=== PATIENT | male | born 1970 | race Caucasian/White ===

== ENCOUNTER 2017-12-13 19:34 | Inpatient (IN) | payer SELFPAY ==
[~2017-12-13] VITALS: Ht 175.3 cm; Wt 95.5 kg
[2017-12-13 20:38] VITALS: BP 176/83; PULSE 88; RESP 18; TEMP 98.1; O2SAT 99
[2017-12-13] MEDS ORDERED: IBUPROFEN 600 MG TAB PO ONE (20:45)
[2017-12-13] MEDS ORDERED: oxyCODONE/ACETAMINOPHEN 5 MG/325 MG TAB PO ONE (20:45)
[2017-12-13] MEDS ORDERED: TRAM50TA PO (20:54)
[2017-12-13] MEDS ORDERED: IBUP-232 PO (20:54)
--- NOTE | 2017-12-13 20:54 | PD ---
HPI Chief Complaint: Pain: Acute or Chronic Time Seen by Provider: 20:38 Travel History International Travel<30 days: No Contact w/Intl Traveler<30days: No Traveled to known affect area: No History of Present Illness HPI 47-year-old male arrives with pain in the right ankle. 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 He never followed up with the physician and the pain gradually subsided somewhat. Today the patient was walking very long distance and felt sudden onset severe pain. In the ER he describes continuous pain in the region of the ankle. It's worse with range of motion and with palpation. PFSH Past Medical History Immunizations Current: No Tetanus Vaccination: Unknown Influenza Vaccination: No Past Surgical History Surgical History: No Previous Surgery Social History Alcohol Use: No (QUIT) Tobacco Use: Yes (09/11 PPD) Substance Use: No Allergies-Medications (Allergen,Severity, Reaction): Coded Allergies: No Known Allergies (Unverified , 12/13/17) Reported Meds & Prescriptions Reported Meds & Active Scripts Active Tramadol (Tramadol HCl) 50 Mg Tab 100 Mg PO Q6H PRN Ibuprofen 600 Mg Tab 600 Mg PO Q8HR PRN Review of Systems General / Constitutional: No: Fever Eyes: No: Diploplia, Blurred Vision HENT: No: Vertigo, Rhinitis Physical Exam Narrative GENERAL: 47-year-old male pleasant well-nourished well-developed mild distress Vital Signs Date Time Temp Pulse Resp B/P (MAP) Pulse Ox O2 Delivery O2 Flow Rate FiO2 12/13/17 20:41 18 12/13/17 20:38 98.1 88 18 176/83 (114) 99 SKIN: Warm and dry. HEAD: Atraumatic. Normocephalic. EYES: Pupils equal and round. No scleral icterus. No injection or drainage. ENT: No nasal bleeding or discharge. Mucous membranes pink and moist. NECK: Trachea midline. No JVD. CARDIOVASCULAR: Regular rate and rhythm. RESPIRATORY: No accessory muscle use. Clear to auscultation. Breath sounds equal bilaterally. GASTROINTESTINAL: Abdomen soft, non-tender, nondistended. Hepatic and splenic margins not palpable. MUSCULOSKELETAL: There is tenderness about the ankle mortise on the right. There is tenderness about the medial and lateral malleolus on the right. No gross deformity. 2+ dorsalis pedis L foot. No palpable DP on R. + Popliteal pulse on the R side. NEUROLOGICAL: Awake and alert. No obvious cranial nerve deficits. Motor grossly within normal limits. Five out of 5 muscle strength in the arms and legs. Normal speech. Data Data Last Documented VS Vital Signs Date Time Temp Pulse Resp B/P (MAP) Pulse Ox O2 Delivery O2 Flow Rate FiO2 12/13/17 22:04 97 12/13/17 20:41 18 12/13/17 20:38 98.1 88 176/83 (114) Orders Orders Ankle, Complete ([id number]) (12/13/17 20:43) Ice/Cold Pack (12/13/17 20:43) Splint Or Brace Apply/Monitor (12/13/17 20:43) Crutches (12/13/17 20:43) Oxycodone-Acetamin 5-325 Mg (Percocet (12/13/17 20:45) Ibuprofen (Motrin) (12/13/17 20:45) Basic Metabolic Panel (Bmp) (12/13/17 21:36) Complete Blood Count With Diff (12/13/17 21:36) Prothrombin Time / Inr (Pt) (12/13/17 21:36) Act Partial Throm Time (Ptt) (12/13/17 21:36) Iv Access Insert/Monitor (12/13/17 21:36) Oximetry (12/13/17 21:36) Oxygen Administration (12/13/17 21:36) Sodium Chloride 0.9% Flush (Ns Flush) (12/13/17 21:45) Hydromorphone Pf Inj (Dilaudid Pf Inj) (12/13/17 21:45) Heparin Inj (Heparin Inj) (12/13/17 22:15) Heparin Inj (Heparin Inj) (12/14/17 04:15) Heparin Inj (Heparin Inj) (12/14/17 04:15) Heparin-D5w 25,000 U/250 Ml (Heparin-D5w (12/13/17 22:15) Cbc No Diff, Includes Plts (12/16/17 06:00) Act Partial Throm Time (Ptt) (12/14/17 05:07) Occult Blood (Hemoccult) Stool (12/13/17 22:07) Cta Runoff W Iv Contrast W 3d (12/13/17 22:09) Consult Vascular Surgery (12/13/17 ) Electrocardiogram (12/13/17 ) (Hub Use Only)Inp Phy Cons/Ref (12/13/17 ) Shoe Cast (12/13/17 ) Labs Laboratory Tests Test 12/13/17 21:50 White Blood Count 16.1 TH/MM3 Red Blood Count 4.88 MIL/MM3 Hemoglobin 14.0 GM/DL Hematocrit 42.6 % Mean Corpuscular Volume 87.3 FL Mean Corpuscular Hemoglobin 28.6 PG Mean Corpuscular Hemoglobin Concent 32.8 % Red Cell Distribution Width 15.4 % Platelet Count 260 TH/MM3 Mean Platelet Volume 8.6 FL Neutrophils (%) (Auto) 78.6 % Lymphocytes (%) (Auto) 13.1 % Monocytes (%) (Auto) 5.5 % Eosinophils (%) (Auto) 0.3 % Basophils (%) (Auto) 2.5 % Neutrophils # (Auto) 12.7 TH/MM3 Lymphocytes # (Auto) 2.1 TH/MM3 Monocytes # (Auto) 0.9 TH/MM3 Eosinophils # (Auto) 0.0 TH/MM3 Basophils # (Auto) 0.4 TH/MM3 CBC Comment DIFF FINAL Differential Comment Prothrombin Time 10.6 SEC Prothromb Time International Ratio 1.0 RATIO Activated Partial Thromboplast Time 24.0 SEC Blood Urea Nitrogen 20 MG/DL Creatinine 1.10 MG/DL Random Glucose 110 MG/DL Calcium Level 9.1 MG/DL Sodium Level 139 MEQ/L Potassium Level 3.9 MEQ/L Chloride Level 106 MEQ/L Carbon Dioxide Level 25.4 MEQ/L Anion Gap 8 MEQ/L Estimat Glomerular Filtration Rate 71 ML/MIN [facility] Medical Decision Making Medical Screen Exam Complete: Yes Emergency Medical Condition: Yes Medical Record Reviewed: Yes Differential Diagnosis Fracture, dislocation, contusion Narrative Course CBC & BMP Diagram 12/13/17 21:50 Calcium Level 9.1 Case discussed with vascular surgeon. Request is made for stat transfer, ER to ER. Case was discussed with the charge nurse in the ER and Dr. Camilo. We will notify Dr. Iniguez as soon as the patient arrives. EMS activated at 11:40 PM. Heparin started. Excellent pain control achieved with 1 mg hydromorphone. Patient is aware of the plan and agreeable with it. Diagnosis Primary Impression: Arterial occlusion Referrals: Dawit Cee DPM Med/Other Pt SpecificInfo: Prescription(s) given Scripts Tramadol (Tramadol) 50 Mg Tab 100 MG PO Q6H Y for PAIN SCALE 6 TO 10, #20 TAB 0 Refills Prov: Jak Romero MD 12/13/17 Ibuprofen (Ibuprofen) 600 Mg Tab 600 MG PO Q8HR Y for PAIN, #20 TAB 0 Refills Prov: Jak Romero MD 12/13/17 Jak Romero MD Dec 13, 2017 20:54
--- NOTE | 2017-12-13 21:42 | RADRPT ---
EXAM DATE/TIME: 12/13/2017 20:51 [facility] COMPARISON: No previous studies available for comparison. INDICATIONS : Fell two months ago. Tonight while walking his ankle gave out on him. Pain anterior surface. MEDICAL HISTORY : None. SURGICAL HISTORY : None. ENCOUNTER: Initial ACUITY: 2 months PAIN SCORE: 8/10 LOCATION: Right Ankle FINDINGS: Three view exam was performed of the right ankle. The bony structures are in normal alignment. No e vidence of fracture, dislocation, or soft tissue swelling. The ankle mortise is intact. No radiopaq ue foreign bodies are seen. Bony mineralization is normal. CONCLUSION: 1. No acute findings. Diomedes Blackmon MD on December 13, 2017 at 21:38 Board Certified Radiologist. This report was verified electronically.
[2017-12-13] MEDS ORDERED: SODIUM CHLORIDE 0.9% FLUSH 10 ML FLUSH IVF PRN (21:45)
[2017-12-13] MEDS ORDERED: HYDROmorphone HCL PF 2 MG/ML VIAL IV PUSH ONE (21:45)
[2017-12-13 22:04] VITALS: O2SAT 97
[2017-12-13 22:06] LABS: BICARBONATE 25.4 MEQ/L (21.0-32.0); CALCIUM 9.1 MG/DL (8.5-10.1)
[2017-12-13 22:08] LABS: PROTHROMBIN TIME - PATIENT 10.6 SEC (9.8-11.6)
[2017-12-13 22:09] LABS: CREATININE 1.1 MG/DL (0.60-1.30)
[2017-12-13 22:10] LABS: AUTOMATED NEUTROPHIL # 12.7 TH/MM3 (1.8-7.7); BASOPHIL # 0.4 TH/MM3 (0-0.2); BASOPHIL % 2.5 % (0.0-2.0); EOSINOPHIL % 0.3 % (0.0-4.0); HEMATOCRIT 42.6 % (39.0-51.0); LYMPH % 13.1 % (9.0-44.0); LYMPHOCYTE # 2.1 TH/MM3 (1.0-4.8); MEAN CELL VOLUME 87.3 FL (80.0-100.0); MEAN CORPUSCULAR HEMOGLOBIN 28.6 PG (27.0-34.0); MEAN CORPUSCULAR HGB CONC 32.8 % (32.0-36.0); MEAN PLATELET VOLUME 8.6 FL (7.0-11.0); MONO % 5.5 % (0.0-8.0); MONOCYTE # 0.9 TH/MM3 (0-0.9); NEUT % 78.6 % (16.0-70.0); PLATELET COUNT 260 TH/MM3 (150-450); RED BLOOD COUNT 4.88 MIL/MM3 (4.50-5.90); RED CELL DISTRIBUTION WIDTH 15.4 % (11.6-17.2); WHITE BLOOD COUNT 16.1 TH/MM3 (4.0-11.0)
[2017-12-13] MEDS ORDERED: HEPARIN-D5W 25,000 U/250 ML 250 ML IV PRN (22:15)
[2017-12-13] MEDS ORDERED: HEPARIN SODIUM - IV 10,000 UNITS/10 ML VIAL IV PUSH ONE (22:15)
[2017-12-13] MEDS ORDERED: IOHEXOL 350 MG/ML 10 ML VIAL (for RAD DIAG) IVCONTRAST ONE ×2 (22:17→23:03)
[2017-12-13 23:19] VITALS: BP 166/84
[2017-12-13 23:45] VITALS: BP 153/81; PULSE 54; RESP 12; O2SAT 97
[2017-12-14] MEDS ORDERED: SODIUM CHLORIDE 0.9% FLUSH 10 ML FLUSH IV FLUSH PRN (00:30)
[2017-12-14] MEDS ORDERED: Post-op Orders (for Pharmacy) XX ONE (00:30)
[2017-12-14] MEDS ORDERED: ONDANSETRON HCL 4 MG/2 ML VIAL IV PUSH PRN (00:30)
[2017-12-14] MEDS ORDERED: oxyCODONE/ACETAMINOPHEN 10 MG/325 MG TAB PO PRN (00:30)
[2017-12-14] MEDS ORDERED: NALOXONE HCL 0.4 MG/ML AMP IV PUSH PRN (00:30)
[2017-12-14] MEDS ORDERED: MORPHINE SULFATE 4 MG/ML INJ IV PRN (00:45)
[2017-12-14] MEDS ORDERED: SODIUM CHLOR 0.9% 250 ML INJ 250 ML IV ONE (01:00)
[2017-12-14] MEDS ORDERED: MIDAZOLAM HCL 2 MG/2 ML VIAL ONE (01:03)
[2017-12-14] MEDS ORDERED: ACETAMINOPHEN 1000 MG/100 ML 100 ML IV ONE (01:03)
[2017-12-14] MEDS ORDERED: FAMOTIDINE 20 MG/2 ML VIAL ONE (01:04)
[2017-12-14] MEDS ORDERED: HEPARIN SODIUM - SQ 10,000 UNITS/ML VIAL ONE ×2 (01:17→03:00)
[2017-12-14 01:30] VITALS: BP 175/91
--- NOTE | 2017-12-14 01:39 | RADRPT ---
EXAM DATE/TIME: 12/14/2017 00:56 [facility] COMPARISON: No previous studies available for comparison. INDICATIONS : Preoperative chest X-Ray. Blood clots in leg. MEDICAL HISTORY : None. SURGICAL HISTORY : None. ENCOUNTER: Initial ACUITY: 1 day PAIN SCORE: 0/10 LOCATION: Bilateral chest FINDINGS: Single AP view of the chest. The lungs are clear. Cardiomediastinal silhouette within normal limits. No evidence of pleural effusion or pneumothorax. CONCLUSION: No acute cardiopulmonary disease identified. Ty Boykin MD on December 14, 2017 at 1:36 Board Certified Radiologist. This report was verified electronically.
[2017-12-14] MEDS ORDERED: ceFAZolin INJ 1,000 MG VIAL ONE (03:00)
[2017-12-14] MEDS: SODIUM CHLOR 0.9% 1000 ML INJ 1,000 ML IV SCH ×3 (03:38→22:09)
[2017-12-14] MEDS ORDERED: HEPARIN SODIUM - IV 10,000 UNITS/10 ML VIAL IV PUSH PRN ×2 (04:15)
[2017-12-14] MEDS ORDERED: DO NOT ADM ANY ANTICOAGULANT DRUGS PRN (04:15)
--- NOTE | 2017-12-14 04:20 | MP ---
cc: Robert Krause MD DATE OF OPERATION: 12/14/2017 DATE OF SURGERY: 12/14/2017. PREOPERATIVE DIAGNOSIS: Ischemia of the right leg; occlusion of the right common iliac, common femoral, SFA, popliteal, and posterior tibial arteries. POSTOPERATIVE DIAGNOSIS: Ischemia of the right leg; occlusion of the right common iliac, common femoral, SFA, popliteal, and posterior tibial arteries. PROCEDURE: Aortoiliac thromboembolectomy, right common femoral embolectomy, right SFA and posterior tibial thromboembolectomy, repair of the common femoral artery. [employer] MECHANICAL ENGINEER: Dr. Krause. ANESTHESIA: General. ESTIMATED BLOOD LOSS: 100 mL. TECHNIQUE: The patient was prepped and draped in the usual fashion. Right groin incision was made and common femoral, deep femoral, and superficial femoral arteries isolated by sharp dissection. A vessel loop was placed around each vessel. The patient was given 5000 units of heparin. The vessel is now opened transversely with 11 blade and Trammell scissors. There is a huge clot sitting in the common femoral artery which nearly completely obstructs the vessel. A #4 James embolectomy catheter is first passed distally, and this results in the retrieval of huge amount of thromboembolic material. The thromboembolic material more proximally in the common femoral artery and the proximal superficial femoral artery appears to be fresh. The one from the distal end appears to be at least 3-4 days old. The James is now passed about 3-4 times down the vessel and it reaches all the way to the ankle, probably if he had a posterior tibial artery. This evacuates old embolic material and then the vessel is flushed with heparinized saline and a profunda clamp placed on it lightly. Proximal end is now attended, and a #5 James is now passed proximally all the way into the aorta and then withdrawn. There is a huge amount of thromboembolic material that is obtained. In addition, there are several segments of the material that appear to be grayish-white in color, which could be either pieces of myxoma coming from the heart or vegetations coming from the heart, or possibly from one of the other vessels. It could also theoretically be tumor material from somewhere, but it is hard to tell. It appears to be umana-whitish, just like myxoma would. The #5 James catheter is now passed a few more times up, and each time, a fair amount of thromboembolic material is obtained until finally there is none left. This is followed by brisk bleeding from inflow down. A Satinsky clamp is applied. Once more a #4 is passed down the leg, and no more embolic material is obtained. Now the vessel is closed with running 6-0 Prolene and then blood flow reestablished in the usual order and fashion. The patient's foot readily pinks up and there is a strong dopplerable posterior tibial and anterior tibial pulse. The area irrigated with saline and closed in layers with 2-0 Vicryl and 4-0 subcuticular Monocryl. The patient tolerated the procedure well. It should be noted that the source of these thromboemboli should be determined. Unfortunately, only in about 30% of patients we are able to determine the original source and mechanism. 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 MD MARY Penny/LAUREEN , 03:46 AM , 04:19 AM
[2017-12-14 04:46] VITALS: BP 156/87; PULSE 63; RESP 18; TEMP 98.1; O2SAT 99
--- NOTE | 2017-12-14 06:35 | MH ---
cc: Robert Krause MD DATE OF ADMISSION: 12/14/2017 ADMITTING PHYSICIAN: Dr. Krause, Vascular Surgery REASON FOR ADMISSION: Ischemia of the right leg. HISTORY OF PRESENT ILLNESS: This 47-year-old male was apparently walking today, when he started experiencing pain in his right leg. Pain was mainly below the knee into the foot, which is very severe, now it is a little less. The patient presented to the ER at [place]. It should be noted that he had an ankle injury on 07/2015, but has been okay since. The patient states that the pain is now throbbing. I was called by ER physician, Dr. Jak Romero, around 10:00 last night that the patient had a cold foot and wanted immediate transfer to [facility]. The patient arrives at [facility] just around midnight and he has been examined. PAST MEDICAL HISTORY: That of right ankle injury 2 months ago. Also, medical history is that of drug abuse, mainly cocaine and weed. PAST SURGICAL HISTORY: Negative. MEDICATIONS: The patient does not take any. SOCIAL HISTORY: Smokes about 1-1/2 pack a day of cigarettes and he smokes weed, says he quit drinking and using cocaine. PHYSICAL EXAMINATION: GENERAL: Reveals a 47-year-old male. HEENT: Normocephalic. No trauma to the head. Pupils equally reactive. Extraocular muscles intact. NECK: Supple. Bilateral carotid pulses. No bruits. CHEST: Bilateral breath sounds. HEART: Regular rhythm. Sinus bradycardia, about 50 beats per minute. No arrhythmias. ABDOMEN: Soft, active bowel sounds. EXTREMITIES: The patient has palpable left femoral pulse. Palpable left popliteal pulse. Palpable dorsalis pedis and posterior tibial on the left. On the right, the patient has no palpable or dopplerable femoral pulse and then a weak Dopplerable popliteal pulse and very slow and sluggish posterior tibial pulse. Dorsalis pedis is absent. Capillary refill is decreased. Forefoot appears to be slightly cyanotic and it is clearly cooler than the left side. This is consistent with likely at least external iliac stenosis or occlusion and then probably scattered occlusion throughout the SFA, popliteal and distal tree. IMAGING: As I am dictating, the CT scan results are not available yet, but this is what I think is happening. I will discuss with Dr. Rahul Dietz. PLAN: The patient will be admitted to my service. We will have TPA lysis and we will go from there. MD MARY Penny/HANY , 12:30 AM , 12:50 AM [facility]AVIN
[2017-12-14 07:28] VITALS: BP 116/69; PULSE 60; RESP 18; TEMP 97.7; O2SAT 98
--- NOTE | 2017-12-14 08:17 | RADRPT ---
EXAM DATE/TIME: 12/13/2017 22:17 [facility] COMPARISON: No previous studies available for comparison. INDICATIONS : Evalaute for occlusion. No pulse in right foot. IV CONTRAST: 100 cc Omnipaque 350 (iohexol) IV RADIATION DOSE: 12.78 CTDIvol (mGy) MEDICAL HISTORY : Skin cancer. SURGICAL HISTORY : None. ENCOUNTER: Initial ACUITY: 1 day PAIN SCALE: 9/10 LOCATION: Right foot. TECHNIQUE: Volumetric scanning was performed using a multi-row detector CT scanner. The data was post processed with a variety of visualization algorithms including full volume maximum intensity projection, multi -planar sliding thin slab reformation, curved planar reformation, and surface rendering techniques. Using automated exposure control and adjustment of the mA and/or kV according to patient size, radiat ion dose was kept as low as reasonably achievable to obtain optimal diagnostic quality images. DICO M format image data is available electronically for review and comparison. FINDINGS: Aorta/inflow: Scattered calcified and noncalcified atheromatous plaque involving the infrarenal aorta. This generat es an irregular luminal contour but no significant stenosis of the abdominal aorta. Thrombus is seen occluding the right common iliac artery extending through the majority of the external iliac artery. There is reconstitution of the common femoral artery via the inferior epigastric artery. There is a 5 0-60% stenosis of the left common iliac artery origin secondary to noncalcified atheromatous plaque. The external aortic artery is patent. Right internal iliac artery fills in a retrograde fashion via t he contralateral side. The left internal iliac artery is patent. There is a very high grade stenosis involving the SMA. This is greater than 90% resulting in a string sign for the proximal 1.5 cm of arlene t vessel. The celiac and LINNETTE are patent. There is variant anatomy at the celiac origin with the left gastric and right hepatic arteries sharing a common trunk arises directly off the aorta. Both renal a rteries are patent and single in nature. Right lower extremity: The common femoral artery, profunda femoris, and SFA are widely patent. There is acute occlusion seco ndary to embolus involving the [id number] popliteal artery. This occludes at the level of the fem oral condyles. Small geniculate collaterals are observed that reconstitute a very diminutive posterio r tibial artery. The peroneal artery is patent proximally but occludes distally. Anterior tibial zia ry is occluded throughout. Left lower extremity: The outflow and runoff are widely patent. 3 vessels to the foot. Other structures: There is an area cortical scarring involving the upper pole of the right kidney. Tiny cortical renal cysts on the left. Degenerative disc disease at L5-S1. CONCLUSION: 1. Calcified and noncalcified atheromatous plaques degenerating and irregular contour to the infraren al aorta without significant stenosis. There is acute occlusion of the right common iliac artery and 50-60% stenosis of the left common iliac artery. 2. Right lower extremity shows embolus occluding the popliteal artery beginning at the [id number] level and extending through the proximal trifurcation vessels. There is reconstitution of the small caliber posterior tibial artery which crosses the foot. Anterior tibial and peroneal are occluded. 3. Patent outflow and runoff involving the left foot. Fito Loving Jr., MD on December 14, 2017 at 8:01 Board Certified Radiologist. This report was verified electronically.
[2017-12-14] MEDS: PANTOPRAZOLE SOD 40 MG DELAYED RELEASE TAB PO SCH (09:09)
[2017-12-14] MEDS: CLOPIDOGREL 75 MG TAB PO SCH (09:09)
[2017-12-14] MEDS: SODIUM CHLORIDE 0.9% FLUSH 10 ML FLUSH IV FLUSH SCH ×2 (09:10→22:09)
[2017-12-14] MEDS: oxyCODONE/ACETAMINOPHEN 5 MG/325 MG TAB PO PRN ×2 (09:13→16:12)
[2017-12-14 11:28] VITALS: BP 107/51; PULSE 55; RESP 18; TEMP 97.9; O2SAT 97
[2017-12-14] MEDS ORDERED: ONDANSETRON HCL 4 MG/2 ML VIAL IV ONE (12:00)
[2017-12-14] MEDS ORDERED: SUCCINYLCHOLINE CHLORIDE 200 MG/10 ML VIAL IV ONE (12:00)
[2017-12-14] MEDS ORDERED: LIDOCAINE HCL 1% PF 5 ML SYRINGE OTHER ONE (12:00)
[2017-12-14] MEDS ORDERED: PROPOFOL 200 MG/20 ML AMP IV ONE (12:00)
[2017-12-14 16:00] VITALS: BP 95/53; PULSE 51; RESP 18; TEMP 97.7; O2SAT 97
--- NOTE | 2017-12-14 16:11 | EKG ---
Date Performed: 12/14/2017 Time Performed: 00:18:22 PTAGE: 47 years EKG: SINUS BRADYCARDIA BORDERLINE ECG NO PREVIOUS TRACING DOCTOR: Brayan Foster Interpretating Date/Time 12/14/2017 16:10:35
--- NOTE | 2017-12-14 16:16 | EKG ---
Date Performed: 12/13/2017 Time Performed: 22:38:49 PTAGE: 47 years EKG: SINUS BRADYCARDIA BORDERLINE ECG NO PREVIOUS TRACING DOCTOR: Brayan Foster Interpretating Date/Time 12/14/2017 16:14:42
--- NOTE | 2017-12-14 16:54 | ECHRPT ---
Indication: Embolism, Vegetation CONCLUSIONS The left ventricular systolic function is low normal with an estimated ejection fraction in the rang e of 50- 55%. Wall thickness is measured at the upper limits of normal. Normal left ventricular size. Mild thickening of the mitral valve leaflets. Trace mitral valve regurgitation. Mild thickening of the aortic valve leaflets. There is mild tricuspid valve regurgitation. The estimated pulmonary arterial pressure is 37.9 mmHg. Trivial pulmonary valve regurgitation. BP: / HR: 49 Rhythm: Sinus MEASUREMENTS (Male / Female) Normal Values Technical Quality:Fair 2D ECHO LV Diastolic Diameter PLAX 4.5 cm 4.2 - 5.9 / 3.9 - 5.3 cm LV Systolic Diameter PLAX 3.4 cm IVS Diastolic Thickness 1.0 cm 0.6 - 1.0 / 0.6 - 0.9 cm LVPW Diastolic Thickness 1.0 cm 0.6 - 1.0 / 0.6 - 0.9 cm LV Relative Wall Thickness 0.5 RV Internal Dim ED PLAX 2.9 cm LVOT Diameter 2.4 cm LA Systolic Diameter LX 3.8 cm 3.0 - 4.0 / 2.7 - 3.8 cm M-MODE Aortic Root Diameter MM 2.7 cm LA Systolic Diameter MM 3.4 cm LA Ao Ratio MM 1.3 AV Cusp Separation MM 1.9 cm DOPPLER AV Peak Velocity 159.0 cm/s AV Peak Gradient 10.1 mmHg LVOT Peak Velocity 139.0 cm/s LVOT Peak Gradient 7.7 mmHg AV Area Cont Eq pk 4.0 cm MV Area PHT 3.9 cm Mitral E Point Velocity 91.6 cm/s Mitral A Point Velocity 35.8 cm/s Mitral E to A Ratio 2.6 TR Peak Velocity 264.0 cm/s TR Peak Gradient 27.9 mmHg Right Atrial Pressure 10.0 mmHg Pulmonary Artery Systolic Pressu 37.9 mmHg Right Ventricular Systolic Press 37.9 mmHg FINDINGS LEFT VENTRICLE The left ventricular systolic function is low normal with an estimated ejection fraction in the rang e of 50- 55%. Wall thickness is measured at the upper limits of normal. Normal left ventricular size. RIGHT VENTRICLE Normal right ventricular size and systolic function. LEFT ATRIUM The left atrial size is normal. RIGHT ATRIUM The right atrial size is normal. ATRIAL SEPTUM Normal atrial septal thickness without atrial level shunting by limited color doppler interrogation. AORTA The aortic root and proximal ascending aorta are normal in size on limited imaging. MITRAL VALVE Mild thickening of the mitral valve leaflets. Trace mitral valve regurgitation. AORTIC VALVE Trileaflet aortic valve. Mild thickening of the aortic valve leaflets. TRICUSPID VALVE Structurally normal tricuspid valve. There is mild tricuspid valve regurgitation. The estimated pulmonary arterial pressure is 37.9 mmHg. PULMONARY VALVE Trivial pulmonary valve regurgitation. VESSELS The inferior vena cava is normal in size. PERICARDIUM No pericardial effusion. Rojas Doyle MD, FACC (Electronically Signed) Final Date:14 December 2017 16:54
[2017-12-14 20:00] VITALS: BP 110/57; PULSE 65; RESP 18; TEMP 98.7; O2SAT 97
[2017-12-15] VITALS: BP 122/63; PULSE 54; RESP 16; TEMP 98.6; O2SAT 96
[2017-12-15] MEDS: oxyCODONE/ACETAMINOPHEN 5 MG/325 MG TAB PO PRN (03:37)
[2017-12-15] MEDS: SODIUM CHLOR 0.9% 1000 ML INJ 1,000 ML IV SCH (07:00)
[2017-12-15 08:00] VITALS: BP 113/59; PULSE 57; RESP 16; RESP 49; TEMP 98.4; O2SAT 95
[2017-12-15 08:01] LABS: AUTOMATED NEUTROPHIL # 6.5 TH/MM3 (1.8-7.7); BASOPHIL % 0.2 % (0.0-2.0); EOSINOPHIL # 0.1 TH/MM3 (0-0.4); EOSINOPHIL % 1.5 % (0.0-4.0); HEMATOCRIT 36.2 % (39.0-51.0); HEMOGLOBIN 11.9 GM/DL (13.0-17.0); LYMPH % 24.2 % (9.0-44.0); LYMPHOCYTE # 2.4 TH/MM3 (1.0-4.8); MEAN CELL VOLUME 88.8 FL (80.0-100.0); MEAN CORPUSCULAR HEMOGLOBIN 29.1 PG (27.0-34.0); MEAN CORPUSCULAR HGB CONC 32.8 % (32.0-36.0); MEAN PLATELET VOLUME 8.4 FL (7.0-11.0); MONO % 7.1 % (0.0-8.0); MONOCYTE # 0.7 TH/MM3 (0-0.9); PLATELET COUNT 197 TH/MM3 (150-450); RED BLOOD COUNT 4.07 MIL/MM3 (4.50-5.90); WHITE BLOOD COUNT 9.7 TH/MM3 (4.0-11.0)
[2017-12-15 08:45] LABS: BICARBONATE 27.5 MEQ/L (21.0-32.0); CALCIUM 8.3 MG/DL (8.5-10.1); CREATININE 0.8 MG/DL (0.60-1.30)
[2017-12-15] MEDS: SODIUM CHLORIDE 0.9% FLUSH 10 ML FLUSH IV FLUSH SCH ×2 (09:00→22:06)
[2017-12-15] MEDS: CLOPIDOGREL 75 MG TAB PO SCH (09:20)
[2017-12-15] MEDS: PANTOPRAZOLE SOD 40 MG DELAYED RELEASE TAB PO SCH (09:20)
[2017-12-15] MEDS ORDERED: INFLUENZA VIRUS VACCINE (QUADRIVALENT) 0.5 ML SYR IM ONE (10:00)
[2017-12-15 12:00] VITALS: BP 126/84; PULSE 64; RESP 16; TEMP 98; O2SAT 97
--- NOTE | 2017-12-15 15:08 | PD.CAR.PN ---
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 Status post iliofemoral and SFA thromboembolectomy. Excellent distal flow with strong dopplerable dorsalis pedis posterior tibial pulses bilaterally Both feet are warm Patient is on Plavix Incision clean and dry Patient ambulating with ease Cardiac echo does not reveal any significant abnormalities that would account for patient's iliac thrombosis At this point we will discharge the patient in the morning and he will follow- up with interventional radiology on an outpatient basis for angiogram with possible dilatation of the iliac arteries if there is a stenotic area there Objective: Vital Signs Date Time Temp Pulse Resp B/P (MAP) Pulse Ox O2 Delivery O2 Flow Rate FiO2 12/15/17 12:00 98.0 64 16 126/84 (98) 97 12/15/17 08:00 98.4 57 16 113/59 (77) 95 12/15/17 00:00 98.6 54 16 122/63 (82) 96 12/14/17 20:00 98.7 65 18 110/57 (74) 97 12/14/17 16:00 97.7 51 18 95/53 (67) 97 Labs: Laboratory Tests Test 12/15/17 07:17 White Blood Count 9.7 TH/MM3 (4.0-11.0) Red Blood Count 4.07 MIL/MM3 (4.50-5.90) Hemoglobin 11.9 GM/DL (13.0-17.0) Hematocrit 36.2 % (39.0-51.0) Mean Corpuscular Volume 88.8 FL (80.0-100.0) Mean Corpuscular Hemoglobin 29.1 PG (27.0-34.0) Mean Corpuscular Hemoglobin Concent 32.8 % (32.0-36.0) Red Cell Distribution Width 16.0 % (11.6-17.2) Platelet Count 197 TH/MM3 (150-450) Mean Platelet Volume 8.4 FL (7.0-11.0) Neutrophils (%) (Auto) 67.0 % (16.0-70.0) Lymphocytes (%) (Auto) 24.2 % (9.0-44.0) Monocytes (%) (Auto) 7.1 % (0.0-8.0) Eosinophils (%) (Auto) 1.5 % (0.0-4.0) Basophils (%) (Auto) 0.2 % (0.0-2.0) Neutrophils # (Auto) 6.5 TH/MM3 (1.8-7.7) Lymphocytes # (Auto) 2.4 TH/MM3 (1.0-4.8) Monocytes # (Auto) 0.7 TH/MM3 (0-0.9) Eosinophils # (Auto) 0.1 TH/MM3 (0-0.4) Basophils # (Auto) 0.0 TH/MM3 (0-0.2) CBC Comment DIFF FINAL Differential Comment Blood Urea Nitrogen 10 MG/DL (7-18) Creatinine 0.80 MG/DL (0.60-1.30) Random Glucose 83 MG/DL (74-106) Calcium Level 8.3 MG/DL (8.5-10.1) Sodium Level 141 MEQ/L (136-145) Potassium Level 3.9 MEQ/L (3.5-5.1) Chloride Level 108 MEQ/L (98-107) Carbon Dioxide Level 27.5 MEQ/L (21.0-32.0) Anion Gap 6 MEQ/L (5-15) Estimat Glomerular Filtration Rate 103 ML/MIN (>89) Result Diagram: 12/15/17 0717 12/15/17 0717 Robert Krause MD Dec 15, 2017 15:08
[2017-12-15 16:00] VITALS: BP 140/63; PULSE 57; RESP 16; TEMP 99; O2SAT 98
[2017-12-15 20:00] VITALS: BP 163/60; PULSE 63; RESP 21; TEMP 98.7; O2SAT 96
[2017-12-16] VITALS: BP 121/61; PULSE 52; RESP 18; TEMP 98.5; O2SAT 95
[2017-12-16] MEDS: oxyCODONE/ACETAMINOPHEN 5 MG/325 MG TAB PO PRN ×2 (00:57→13:02)
[2017-12-16 04:00] VITALS: BP 111/65; PULSE 57; RESP 19; TEMP 98.4; O2SAT 96
[2017-12-16 08:00] VITALS: BP 122/70; PULSE 53; RESP 20; TEMP 97.9; O2SAT 96
[2017-12-16] MEDS: PANTOPRAZOLE SOD 40 MG DELAYED RELEASE TAB PO SCH (08:57)
[2017-12-16] MEDS: CLOPIDOGREL 75 MG TAB PO SCH (08:57)
[2017-12-16] MEDS: SODIUM CHLORIDE 0.9% FLUSH 10 ML FLUSH IV FLUSH SCH (08:58)
--- NOTE | 2017-12-16 11:11 | PD.CAR.PN ---
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 Status post iliofemoral and SFA thromboembolectomy. Excellent distal flow with strong dopplerable dorsalis pedis posterior tibial pulses bilaterally Both feet are warm Patient is on Plavix Incision clean and dry Patient ambulating with ease Cardiac echo does not reveal any significant abnormalities that would account for patient's iliac thrombosis At this point we will discharge the patient in the morning and he will follow- up with interventional radiology on an outpatient basis for angiogram with possible dilatation of the iliac arteries if there is a stenotic area there 12/16/2017 Incision clean and dry with good distal pulses in both legs Palpable femoral pulses bilateral Patient can be discharged at this time and will follow up with me and interventional radiology for outpatient angiogram and possible stenting Objective: Vital Signs Date Time Temp Pulse Resp B/P (MAP) Pulse Ox O2 Delivery O2 Flow Rate FiO2 12/16/17 08:00 97.9 53 20 122/70 (87) 96 12/16/17 04:00 98.4 57 19 111/65 (80) 96 12/16/17 00:00 98.5 52 18 121/61 (81) 95 12/15/17 20:00 98.7 63 21 163/60 (94) 96 12/15/17 16:00 99.0 57 16 140/63 (88) 98 12/15/17 12:00 98.0 64 16 126/84 (98) 97 Result Diagram: 12/15/17 0717 12/15/17 0717 Robert Krause MD Dec 16, 2017 11:11
[2017-12-16] MEDS ORDERED: OXYC1TAB63 PO (11:15)
[2017-12-16] MEDS ORDERED: PLAV75TA29 PO (11:15)
[2017-12-16 12:00] VITALS: BP 149/69; PULSE 59; RESP 20; TEMP 98.4; O2SAT 96
== END 2017-12-16 15:05 | disposition home or self-care (01) | DRG 253 ==
LOC: PHEFT 19:34 → NEDA 12-14 00:32 → N06B 12-14 04:39
PROVIDERS: ADMIT Surgery; ATTEND Surgery
PROC: 04CR0ZZ Extirpation of Matter from Right Posterior Tibial Artery, Open Approach (ICD-10-PCS; 2017-12-14)
PROC: 04CK0ZZ Extirpation of Matter from Right Femoral Artery, Open Approach (ICD-10-PCS; principal; 2017-12-14 01:50)
DX: I74.3 Embolism and thrombosis of arteries of the lower extremities (principal); I74.5 Embolism and thrombosis of iliac artery; R00.1 Bradycardia, unspecified; D15.1 Benign neoplasm of heart; F14.10 Cocaine abuse, uncomplicated; F12.10 Cannabis abuse, uncomplicated; F17.210 Nicotine dependence, cigarettes, uncomplicated
CPT/HCPCS: 71045; 73610; 75635; 80048; 85025; 85610; 85730; 86850; 86900; 86901; 86920; 88304; 90686; 93005; 93306; 94150; 99285; E0113; J0131; J0330; J0690; J1170; J1644; J2250; J2405; J3010; J7030; L3260; Q2038; Q9967

== ENCOUNTER 2018-02-17 08:36 | Emergency (ER) | payer SELFPAY ==
[~2018-02-17] VITALS: Ht 175.3 cm; Wt 90.0 kg
[~2018-02-17 08:36] MED LIST: OXYC1TAB63 PO; PLAV75TA29 PO
[2018-02-17 08:40] VITALS: BP 142/75; PULSE 85; RESP 18; TEMP 98.3; O2SAT 100
--- NOTE | 2018-02-17 09:16 | PD ---
HPI Chief Complaint: Pain: Acute or Chronic Time Seen by Provider: 09:02 Travel History International Travel<30 days: No Contact w/Intl Traveler<30days: No Traveled to known affect area: No History of Present Illness HPI Patient comes in stating that he has had surgery by vascular surgeon Dr. Abdullahi, back in December when he had some apparent blockage on his right arterial flow of his right lower extremity. Patient states that he was feeling better after that , until last night when he started feeling right foot and leg pain. The pain was described as sharp crampy, 8 out of 10 WORSE WITH LONG WALKS...., patient denies having any pale-looking foot or cold. No known drug allergy Past medical history significant for peripheral vascular disease, history of skin cancer, patient continues to smoke 1-1/2 pack per day cigarettes PFSH Past Medical History Hx Anticoagulant Therapy: Yes Cancer: Yes (SKIN CANCER) Cardiovascular Problems: No Endocrine: No Genitourinary: No Musculoskeletal: No Neurologic: No Psychiatric: No Reproductive: No Respiratory: No Immunizations Current: No Past Surgical History Other Surgery: Yes Social History Alcohol Use: No (QUIT) Tobacco Use: Yes (09/11 PPD) Substance Use: No Allergies-Medications (Allergen,Severity, Reaction): Coded Allergies: No Known Allergies (Unverified , 12/13/17) Reported Meds & Prescriptions Reported Meds & Active Scripts Active No Active Prescriptions or Reported Medications Review of Systems General / Constitutional: No: Fever Eyes: No: Visual changes HENT: No: Headaches Cardiovascular: No: Chest Pain or Discomfort Respiratory: No: Shortness of Breath Gastrointestinal: No: Abdominal Pain Genitourinary: No: Dysuria Musculoskeletal: Positive: Pain Skin: No Rash Neurologic: No: Weakness Psychiatric: No: Depression Endocrine: No: Polydipsia Hematologic/Lymphatic: No: Easy Bruising Physical Exam Narrative GENERAL: SKIN: Warm and dry. HEAD: Atraumatic. Normocephalic. EYES: Pupils equal and round. No scleral icterus. No injection or drainage. ENT: No nasal bleeding or discharge. Mucous membranes pink and moist. NECK: Trachea midline. No JVD. CARDIOVASCULAR: Regular rate and rhythm. Left pedal pulses palpablE but decreased to a 1+, right pedal pulse was not palpable but dopplerable monophasic flow found, foot is not exhibiting pallor, warm to touch, RESPIRATORY: No accessory muscle use. Clear to auscultation. Breath sounds equal bilaterally. GASTROINTESTINAL: Abdomen soft, non-tender, nondistended. MUSCULOSKELETAL: Extremities without clubbing, cyanosis, or edema. No obvious deformities. NEUROLOGICAL: Awake and alert. No obvious cranial nerve deficits. Motor grossly within normal limits. Five out of 5 muscle strength in the arms and legs. Normal speech. PSYCHIATRIC: Appropriate mood and affect; insight and judgment normal. Data Data Last Documented VS Orders Orders Cta Runoff W Iv Contrast W 3d (02/17/18 ) Iohexol 350 Inj (Omnipaque 350 Inj) (02/17/18 09:24) Heparin Inj (Heparin Inj) (02/17/18 17:45) Heparin Inj (Heparin Inj) (02/17/18 17:45) Act Partial Throm Time (Ptt) (02/17/18 11:44) Prothrombin Time / Inr (Pt) (02/17/18 11:44) Cbc No Diff, Includes Plts (02/17/18 11:44) Enoxaparin Inj (Lovenox Inj) (02/17/18 12:00) Ed Discharge Order (02/17/18 13:56) Labs Laboratory Tests Test 02/17/18 11:52 White Blood Count 9.0 TH/MM3 Red Blood Count 4.01 MIL/MM3 Hemoglobin 11.9 GM/DL Hematocrit 35.7 % Mean Corpuscular Volume 89.2 FL Mean Corpuscular Hemoglobin 29.6 PG Mean Corpuscular Hemoglobin Concent 33.2 % Red Cell Distribution Width 15.6 % Platelet Count 249 TH/MM3 Mean Platelet Volume 9.2 FL Prothrombin Time 10.0 SEC Prothromb Time International Ratio 1.0 RATIO Activated Partial Thromboplast Time 26.2 SEC [facility] Medical Decision Making Medical Screen Exam Complete: Yes Emergency Medical Condition: Yes Medical Record Reviewed: Yes Differential Diagnosis Vascular stenosis versus embolus versus thrombus versus aneurysm Narrative Course Aorta with runoff CTA performed and read by radiologist with the following conclusion: Moderate stenosis of the proximal common iliac arteries bilaterally. The right common iliac internal and external iliac arteries are now widely patent. There is occlusion of the right superficial femoral artery and above-knee popliteal. There is reconstitution of the popliteal artery at the knee with runoff to the ankle via the posterior tibial artery. Call made to vascular surgery to consult on care plan Single dose of Lovenox will be given to the patient subcu Physician Communication Physician Communication Discussed the case at length with Dr. Guzman, vascular surgeon operations consultant, who recommends follow-up as an outpatient tomorrow morning, patient has dopplerable pulse on the right and is able to wiggle his toes and move and stand up and walk on his right lower extremity. Dr. Abdullahi surgeon who performed the procedure will see the patient at bedside...as per dr abdullahi this is a known chronic finding and that there was planned correction at a delay time Diagnosis Primary Impression: Pain secondary to Peripheral vascular disease Additional Impressions: Status post iliofemoral and SFA thromboembolectomy ARTERIAL OCCLUSION OF RIGHT SFA Admitting Information Admitting Physician Requests: Admit Referrals: Robert Krause MD Patient Instructions: General Instructions, How to Stop Smoking (DC), Peripheral Artery Disease (ED) Scripts No Active Prescriptions or Reported Meds Disposition: 01 DISCHARGE HOME Condition: Stable Yohannes Wheat MD Feb 17, 2018 09:16
[2018-02-17] MEDS ORDERED: IOHEXOL 350 MG/ML 10 ML VIAL (for RAD DIAG) IVCONTRAST ONE (09:24)
--- NOTE | 2018-02-17 11:18 | RADRPT ---
EXAM DATE: 02/17/2018 10:36 AM EDT AGE/SEX: 47 years / Male INDICATIONS: Sudden onset of right foot pain, status post vascular surgery on 12/26. CLINICAL DATA: This is the patient's initial encounter. Patient reports that signs and symptoms have been present for 1 day and indicates a pain score of 5/10. MEDICAL/SURGICAL HISTORY: None. . Vascular surgery RADIATION DOSE: 3.53 CTDI (mGy) COMPARISON: [facility]PO, CTA RUNOFF W 3D RECON, 12/13/2017. . TECHNIQUE: Volumetric scanning was performed using a multi-row detector CT scanner during bolus infu alize of 96 ml Omnipaque 350 (iohexol) nonionic water-soluble contrast as a single exam dose. The d rui was post processed with a variety of visualization algorithms including full volume maximum inten sity projection, multi-planar sliding thin slab reformation, curved planar reformation, and surface r endering techniques. Using automated exposure control and adjustment of the mA and/or kV according t o patient size, radiation dose was kept as low as reasonably achievable to obtain optimal diagnostic quality images. FINDINGS: There is atherosclerotic plaquing throughout the aorta with focal moderate stenosis of the right comm on iliac and left common iliac arteries proximally. The right common iliac artery, external and inter nal iliac arteries are patent as well as the right common femoral artery. There are surgical clips no ortega at the bifurcation of the common femoral artery. The right superficial femoral artery is occluded as well as the above-knee popliteal which reconstitutes at the knee with posterior tibial artery pat ent to the foot, anterior tibial and peroneal artery occlude proximally. On the left there is three-v essel runoff to the ankle, superficial femoral, common femoral and popliteal arteries are patent on t he left. As noted previously there is severe stenosis involving the superior mesenteric artery, proximal 1.4 c m. There is right upper pole renal scarring. CONCLUSION: 1. On the current examination there is moderate stenosis of the proximal common iliac arteries bilat erally. The right common iliac, internal and external iliac arteries are now widely patent. 2. There is however occlusion of the right superficial femoral artery and above-knee popliteal. Ther e is reconstitution of the popliteal artery at the knee with runoff to the ankle via the posterior ti bial artery. 3. 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 4. Electronically signed by: Son Magallanes MD 02/17/2018 11:17 AM EDT
[2018-02-17] MEDS ORDERED: HEPARIN-D5W 25,000 U/250 ML 250 ML IV PRN (11:45)
[2018-02-17] MEDS ORDERED: ENOXAPARIN SODIUM 80 MG/0.8 ML SYRINGE SQ ONE (12:00)
[2018-02-17 12:05] VITALS: BP 116/62; PULSE 59; RESP 16; O2SAT 97
[2018-02-17 12:23] LABS: HEMATOCRIT 35.7 % (39.0-51.0); HEMOGLOBIN 11.9 GM/DL (13.0-17.0); MEAN CELL VOLUME 89.2 FL (80.0-100.0); MEAN CORPUSCULAR HEMOGLOBIN 29.6 PG (27.0-34.0); MEAN CORPUSCULAR HGB CONC 33.2 % (32.0-36.0); MEAN PLATELET VOLUME 9.2 FL (7.0-11.0); PLATELET COUNT 249 TH/MM3 (150-450); RED BLOOD COUNT 4.01 MIL/MM3 (4.50-5.90); RED CELL DISTRIBUTION WIDTH 15.6 % (11.6-17.2)
--- NOTE | 2018-02-17 13:38 | PD.CAR.PN ---
CVT Progress Note Subjective/Hospital Course: 47-year-old male who presented in December with occlusion of the aorto iliac system on the right as well as SFA on the right and cold right foot. Patient underwent transfemoral aortic to iliac thromboembolectomy SFA thromboembolectomy washout reestablishment of the flow to the foot. On postop arteriogram patient had superb flow to the foot and was discharged on anticoagulants with instructions to immediately stop smoking and follow-up in my office. 1. Patient was contacted several times and never followed up with my office he states he was told he will not get any pain medication so he did not see any reason to come to my office for follow-up 2. Patient never filled the prescription for anticoagulants and has never taken any since the discharge 3. Patient states he continues to smoke 1 pack of cigarettes per day and pot. Now patient comes back with some pain in his right foot and CTA reveals occlusion of the superficial femoral artery. The inflow is patent and fully open Patient has dopplerable distal pulses and the right foot is nice and warm. This is at this time chronic occlusion and cannot be recanalized. Patient can come to my office and we will schedule him for femoral-popliteal bypass in the near future. Thanks J Objective: Vital Signs Date Time Temp Pulse Resp B/P (MAP) Pulse Ox O2 Delivery O2 Flow Rate FiO2 02/17/18 12:05 59 16 116/62 (80) 97 Room Air 02/17/18 08:40 98.3 85 18 142/75 (97) 100 Labs: Laboratory Tests Test 02/17/18 11:52 White Blood Count 9.0 TH/MM3 (4.0-11.0) Red Blood Count 4.01 MIL/MM3 (4.50-5.90) Hemoglobin 11.9 GM/DL (13.0-17.0) Hematocrit 35.7 % (39.0-51.0) Mean Corpuscular Volume 89.2 FL (80.0-100.0) Mean Corpuscular Hemoglobin 29.6 PG (27.0-34.0) Mean Corpuscular Hemoglobin Concent 33.2 % (32.0-36.0) Red Cell Distribution Width 15.6 % (11.6-17.2) Platelet Count 249 TH/MM3 (150-450) Mean Platelet Volume 9.2 FL (7.0-11.0) Prothrombin Time 10.0 SEC (9.8-11.6) Prothromb Time International Ratio 1.0 RATIO Activated Partial Thromboplast Time 26.2 SEC (24.3-30.1) Result Diagram: 02/17/18 1152 Robert Krause MD Feb 17, 2018 13:38
[2018-02-17 14:24] VITALS: BP 136/60
[2018-02-17] MEDS ORDERED: HEPARIN SODIUM - IV 10,000 UNITS/10 ML VIAL IV PUSH PRN ×2 (17:45)
== END 2018-02-17 14:25 | disposition home or self-care (01) ==
LOC: NEPE 08:36
DX: I73.9 Peripheral vascular disease, unspecified (principal); Z79.01 Long term (current) use of anticoagulants; Z72.0 Tobacco use
CPT/HCPCS: 75635; 85027; 85610; 85730; 96372; 99284; J1650; Q9967